=== PATIENT | male | born 1980 | race Caucasian/White ===

== ENCOUNTER 2016-12-07 14:43 | Emergency (ER) | payer SELFPAY ==
[2016-12-07] MEDS ORDERED: MOTRIN 600 MG PO ONE (14:59)
[2016-12-07] MEDS ORDERED: MOTRIN 600 MG ONE (15:01)
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
[2016-12-07 15:50] VITALS: BP 133/82; PULSE 70; O2SAT 100
== END 2016-12-07 16:04 | disposition home or self-care (01) ==
LOC: ED 14:43
DX: Z04.1 Encounter for examination and observation following transport accident (principal); V43.52XA Car driver injured in collision with other type car in traffic accident, initial encounter
CPT/HCPCS: 99281; 99282; 99283